=== PATIENT | male | born 1955 | race Native Hawaiian/Other Pacific Islander ===

== ENCOUNTER 2017-01-12 08:57 | Outpatient (CLI) | payer BC | END 2017-01-12 09:04 | disposition short-term general hospital (02) | LOC: AMB 08:57 | DX: I46.9 Cardiac arrest, cause unspecified (principal) | CPT/HCPCS: A0425; A0427 ==

== ENCOUNTER 2017-01-12 09:07 | Emergency (ER) | payer BC ==
[~2017-01-12] VITALS: Ht 175.3 cm; Wt 113.4 kg
[2017-01-12 09:25] LABS: PLATELET COUNT 127 K/uL (142-355)
[2017-01-12 09:34] LABS: POTASSIUM 4.4 mmol/L (3.6-5.2)
[2017-01-12 09:59] VITALS: BP 0/0
== END 2017-01-12 10:52 | disposition expired ==
LOC: ED 09:07
PROVIDERS: Family Medicine
PROC: 5A12012 Performance of Cardiac Output, Single, Manual (ICD-10-PCS; principal; 2017-01-12)
PROC: 0BH17EZ Insertion of Endotracheal Airway into Trachea, Via Natural or Artificial Opening (ICD-10-PCS; 2017-01-12)
DX: I46.9 Cardiac arrest, cause unspecified (principal); I21.3 ST elevation (STEMI) myocardial infarction of unspecified site
CPT/HCPCS: 31500; 36415; 80053; 85027; 92950; 96360; 96361; 96374; 96375; 96376; 99291; J0171; J0282; J3490